=== PATIENT | female | born 1995 | race African-American/Black ===

== ENCOUNTER 2017-04-30 17:30 | Emergency (ER) | payer OTHER ==
[~2017-04-30] VITALS: Ht 165.1 cm; Wt 65.8 kg
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
--- NOTE | 2017-04-30 18:21 | NUR ---
Patient discharged to home in stable condition. Written and verbal after care instructions given. Patient verbalizes understanding of instruction. AMBUALTORY WITH STEADY GAIT.
[2017-04-30 18:37] VITALS: BP 120/71
== END 2017-04-30 18:21 | disposition home or self-care (01) ==
LOC: ER 17:33
DX: F41.9 Anxiety disorder, unspecified (principal)
CPT/HCPCS: 93005; 99284; A4606; Z7610